=== PATIENT | female | born 1945 | race Caucasian/White ===

== ENCOUNTER → 2016-10-31 | Outpatient (CLI) | payer OTHER ==
[~2016-10-31] MED LIST: AMLO-110 PO; ASPI325T39 PO; BIOT1CAP8 PO; CALC600T9 PO; FERR18TA PO; MULT-506 PO; TRIATAB3 PO
--- NOTE | 2016-10-31 13:42 | DIAGNOSTIC IMAGING REPORT ---
ULTRASOUND RIGHT LOWER EXTREMITY VENOUS CLINICAL HISTORY: Right calf pain. COMPARISON STUDY: No priors. TECHNIQUE: Real-time, grayscale, and color Doppler sonography of the deep veins of the right lower extremity was performed from the inguinal crease to the calf. Compression and augmentation were utilized. FINDINGS: There is no sonographic evidence of deep venous thrombosis identified in the right lower extremity. The common femoral, superficial femoral, and popliteal veins are patent and normally compressible. The greater saphenous vein and the profunda femoris vein at the junction with the common femoral vein are clear. The visualized calf veins are patent. IMPRESSION: There is no sonographic evidence of deep venous thrombosis identified in the right lower extremity. Electronically signed by: Kamran Shi M.D. 10/31/2016 1:39 PM Dictated Date/Time: 10/31/2016 1:38 PM
== END | disposition home or self-care (01) ==
LOC: C.ULTRBC 13:05
PROVIDERS: ATTEND Family Medicine
DX: M79.661 Pain in right lower leg (principal)

== ENCOUNTER 2017-05-08 22:39 | Emergency (ER) | payer OTHER ==
[~2017-05-08] VITALS: Ht 160 cm; Wt 79.1 kg
[2017-05-08 22:42] VITALS: TEMP 36.5; Ht 160 cm; Wt 79.1 kg
[2017-05-08 23:02] VITALS: BP 147/78; PULSE 78; O2SAT 95
--- NOTE | 2017-05-09 03:06 | EMERGENCY ROOM VISIT NOTE ---
History First contact with patient: 22:44 Chief Complaint: BLEEDING Stated Complaint: LEFT LEG SQUIRTING BLOOD Nursing Triage Summary: left leg spontaneously started bleeding and "wouldn't stop" History of Present Illness The patient is a 71 year old female who presents to the Emergency Room with complaints of bleeding to the left lower leg. Tetanus is up-to-date. No known injury. Patient has varicose veins present. Patient denies chest pain, dyspnea , numbness, tingling, trauma to the area, bleeding disorders. Review of Systems See HPI for pertinent positives & negatives. A total of 6 systems reviewed and were otherwise negative. Past Medical/Surgical History Hypertension Social History Smoking Status: Never Smoker Alcohol Use: none Drug Use: none Occupation Status: employed Current/Historical Medications Scheduled Amlodipine (Norvasc), 5 MG PO QAM Aspirin (Aspirin Ec), 325 MG PO QAM Biotin (Biotin), 1 CAP PO QAM Calcium Carbonate-Vitamin D (Calcium + D), 1 TAB PO QAM Ferrous Sulfate (Iron), 1 TAB PO QAM Multivitamin (Multivitamin), 1 TAB PO QAM Triamterene/Hctz (Triamterene/Hctz 37.5-25MG), 1 TAB PO QAM Physical Exam Vital Signs Date Time Temp Pulse Resp B/P (MAP) Pulse Ox O2 Delivery O2 Flow Rate FiO2 05/08/17 23:02 78 16 147/78 95 Room Air 05/08/17 22:42 36.5 79 18 171/82 95 Room Air Physical Exam VITALS: Vitals are noted on the nurse's note and reviewed by myself. Vital signs stable. GENERAL: Pleasant female, in no acute distress, nondiaphoretic, well-developed well-nourished. SKIN: Left lower leg with 2 mm varicose vein that is bleeding with that appears clean Capillary reflex less than 2 seconds. HEENT: Normocephalic. PERRLA. EOMI. Nares patent. Mucous membranes moist. Neck is supple without nuchal rigidity. HEART: Regular rate and LUNGS: Clear to auscultation bilaterally without wheezes, rales or rhonchi. No retractions or accessory muscle use. MUSCULOSKELETAL: No gross musculoskeletal defects. No pedal edema. No calf tenderness. NEURO: Patient was alert and oriented to person place and time. Normal sensation to light and sharp touch. No focal neurological deficits. Medical Decision & Procedures ED Course Prior records reviewed and summarized as above. Triage Nursing notes reviewed. Additional history obtained from []. The patient's history was concerning for swelling and redness of the skin. Differential diagnosis: Etiologies such as laceration, abrasion, varicose veins bleeding, bleeding disorder, as well as others were entertained.. Physical examination: The physical examination was consistent with bleeding varicose vein ER treatment provided: Varicose vein bleeding controlled On reassessment the patient felt better. Diagnostics interpreted by me: Patient consented to procedure and using antiseptic technique there is cleansed and Gelfoam was placed. The area is bandaged and bleeding was controlled. Patient was observed for 30 minutes and no rebleeding. Exam and history seem consistent with varicose vein that was bleeding. Hemostasis was achieved. Patient was Gelfoam and on Wound Care. She Is Advised to Follow-Up with Family Care in A Few Days or Here in the ER Sooner for Signs of Infection, Bleeding, Worsening Signs or Symptoms or As Needed. Patient Was Neurovascularly Neurologic Intact. She Is Well-Appearing. By the evaluation outlined above emergent etiologies such as bleeding disorder, laceration, as well as others were deemed relatively unlikely. The pt informed about the findings as listed above. All questions were answered and pleased with the treatment. Return instructions were outlined and the patient was discharged in stable condition. Referral: The patient was referred back to primary care physician for follow-up in 2 to 3 days for a recheck of the current condition.\\ Case reviewed with my attending Medical Decision As above Medication Reconcilliation Current Medication List: was personally reviewed by me Blood Pressure Screening Patient's blood pressure: Elevated blood pressure Blood pressure disposition: Elevated BP felt to be situational Impression Primary Impression: Bleeding from varicose veins of left lower extremity Departure Information Dispostion Home / Self-Care Condition GOOD Forms HOME CARE DOCUMENTATION FORM, IMPORTANT VISIT INFORMATION Patient Instructions My [facility] Additional Instructions Your blood pressure was elevated today, monitor this and follow-up with family care. Leave the GELFOAM and dressing in place for the next 24 hours. Keep the dressing clean and dry until time for removal. To remove the GELFOAM dressing, remove the overlying tape and then soak the wound in warm water until the piece of GELFOAM can be easily removed. After Gelfoam is removed then apply Antibiotic ointment and bandage to the areas until healed. Follow up with family doctor or return for any signs of infection (increasing redness, swelling, drainage, or fever). Keep covered when in sun until fully healed then SPF 50 or higher until scar healed. Return to ER sooner for fever, redness, drainage, worsening signs or symptoms or as needed.
== END 2017-05-08 23:17 | disposition home or self-care (01) ==
LOC: C.EDB 22:41
DX: I83.892 Varicose veins of left lower extremity with other complications (principal); I10 Essential (primary) hypertension